=== PATIENT | female | born 1995 | race Two or more races ===

== ENCOUNTER 2017-11-18 10:20 | Emergency (ER) | payer MEDICAID ==
[~2017-11-18] VITALS: Ht 172.7 cm; Wt 70.9 kg
[2017-11-18] MEDS ORDERED: ONDANSETRON ODT 4 MG PO ONE (12:00)
[2017-11-18] MEDS ORDERED: MORPHINE SULFATE 4 MG/ML, 1ML IVPush PRN (12:00)
[2017-11-18 12:19] LABS: CULTURE INDICATED? YES; MICROSCOPIC INDICATED
[2017-11-18] MEDS ORDERED: MORPHINE SULFATE 4 MG/ML, 1ML ONE (12:39)
[2017-11-18] MEDS ORDERED: ONDANSETRON ODT 4 MG ONE (12:39)
[2017-11-18 12:54] LABS: BASOPHILS # (AUTO) 0.02 x10^3/uL (0-0.1); BASOPHILS % (AUTO) 0 % (0-1); EOSINOPHILS # (AUTO) 0.02 x10^3/uL (0-0.4); EOSINOPHILS % (AUTO) 0 % (1-7); LYMPHOCYTES # (AUTO) 1.31 x10^3/uL (1-3.4); LYMPHOCYTES % (AUTO) 25 % (22-44); MD NO; MEAN CORPUSCULAR HEMOGLOBIN 25.9 pg (27.0-34.8); MEAN CORPUSCULAR HGB CONC 32.8 g/dL (32.4-35.8); MEAN CORPUSCULAR VOLUME 79.1 fL (80-100); MEAN PLATELET VOLUME 9.8 fL (7.4-10.4); MONOCYTES # (AUTO) 0.45 x10^3/uL (0.2-0.8); MONOCYTES % (AUTO) 9 % (2-9); NEUTROPHILS # (AUTO) 3.49 x10^3/uL (1.8-6.8); NEUTROPHILS % (AUTO) 66 % (42-75); PLATELET COUNT 222 x10^3/uL (130-400); RED BLOOD COUNT 4.62 x10^6/uL (3.82-5.3); RED CELL DISTRIBUTION WIDTH 16.3 % (9.6-15.2)
[2017-11-18 12:58] LABS: ANION GAP 8 mmol/L (5-15); CALCIUM 8.5 mg/dL (8.5-10.1); CHLORIDE 107 mmol/L (98-107); CREATININE 0.81 mg/dL (0.55-1.02)
[2017-11-18 12:59] LABS: ALANINE AMINOTRANSFERASE 22 U/L (12-78); ALBUMIN 3.4 g/dL (3.4-5.0)
[2017-11-18 13:02] LABS: ALKALINE PHOSPHATASE 40 U/L (45-117); BILIRUBIN,TOTAL 0.5 mg/dL (0.2-1.0); TOTAL PROTEIN 6.8 g/dL (6.4-8.2)
[2017-11-18] MEDS ORDERED: OMNIPAQUE 350 MG/ML, 100ML BOTTLE ONE (14:20)
[2017-11-18 15:49] VITALS: BP 113/56
== END 2017-11-18 15:51 | disposition home or self-care (01) ==
LOC: ED 11:48
DX: N30.90 Cystitis, unspecified without hematuria (principal)
CPT/HCPCS: 36415; 74177; 76830; 76857; 80053; 81001; 83690; 84702; 85025; 87077; 87086; 87186; 96374; 99285; Q0162; Q9967